=== PATIENT | female | born 1960 | race Caucasian/White ===

== ENCOUNTER 2017-01-14 05:38 | Inpatient (IN) | payer OTHER ==
[2017-01-14] MEDS ORDERED: IOPAMIDOL (ISOVUE-300) 100 ML BTL IV ONE (05:49)
[2017-01-14] MEDS ORDERED: ONDANSETRON 4 MG/2 ML VIAL ONE ×2 (06:10→09:30)
[2017-01-14] MEDS ORDERED: ONDANSETRON 4 MG/2 ML VIAL IVP ONE ×2 (06:15)
[2017-01-14] MEDS ORDERED: NS 1,000 ML IV ONE ×2 (06:15→07:27)
[2017-01-14 06:28] LABS: % IMMATURE GRANULYOCYTES 0.4 % (0.0-1.1); ABSOLUTE IMMATURE GRANULOCYTES 0.07 10^3/uL (0.00-0.10); ADD DIFF? NO; ADD MORPH? NO; ADD SCAN? NO; ATYPICAL LYMPHOCYTE FLAG 0 (0-99); FRAGMENT RBC FLAG 0 (0-99); HEMATOCRIT 49.3 % (38.0-47.0); HEMOGLOBIN 17.3 g/dL (12.6-16.3); LEFT SHIFT FLG 20 (0-99); LIPEMIA HEMOLYSIS FLAG 90 (0-99); MEAN CELL HEMOGLOBIN 30.8 pg (27.9-34.1); MEAN CELL HEMOGLOBIN CONCENTR. 35.1 g/dL (32.4-36.7); MEAN CELL VOLUME 87.9 fL (81.5-99.8); MEAN PLATELET VOLUME 10.1 fL (8.7-11.7); PLATELET CLUMPS FLAG 10 (0-99); PLATELET COUNT 351 10^3/uL (150-400); RED BLOOD CELL COUNT 5.61 10^6/uL (4.18-5.33); RED CELL DISTRIBUTION WIDTH 12.3 % (11.5-15.2)
[2017-01-14 06:40] LABS: ALANINE AMINOTRANSFERASE 35 IU/L (9-52); ALBUMIN 4.8 g/dL (3.5-5.0); ALKALINE PHOSPHATASE 54 IU/L (38-126); ANION GAP 14 mEq/L (8-16); ASPARTATE AMINOTRANSFERASE 33 IU/L (14-46); BILIRUBIN,TOTAL 1.2 mg/dL (0.1-1.4); BILIRUBIN-CONJUGATED 0.3 mg/dL (0.0-0.5); BILIRUBIN-UNCONJUGATED 0.9 mg/dL (0.0-1.1); CARBON DIOXIDE 26 mEq/l (22-31); CHLORIDE 98 mEq/L (97-110); CREATININE 0.9 mg/dL (0.6-1.0); GLOMERULAR FILTRATION RATE > 60; GLUCOSE 177 mg/dL (70-100); POTASSIUM 4.7 mEq/L (3.5-5.2); SODIUM 138 mEq/L (134-144)
--- NOTE | 2017-01-14 06:45 | EDPHY ---
H & P Stated Complaint: VOMIT X2 DAY,SEVERE AP AND RIGHT SHOULDER PAIN 2100,LEFT KNEE SURG 1 WK AGO Time Seen by Provider: 01/14/17 06:08 HPI/ROS: HPI The patient presents with right-sided abdominal pain which began at approximately 9:00 p.m. last night and is associated with vomiting. The patient describes the pain is sharp, it radiates throughout her abdomen, it is severe. It has been constant throughout the night and she has not slept well. She is having difficulty walking because of the pain. She has not had any fever. She had a knee operation about 1 week ago and only took pain pills for 1 day. She is not on any other new medications. She says she has been having small bowel movements. She denies any dysuria or hematuria.. REVIEW OF SYSTEMS Constitutional: No fever, no chills. Eyes: No discharge. ENT: No sore throat. Cardiovascular: No chest pain, no palpitations. Respiratory: No cough, no shortness of breath. Gastrointestinal: No abdominal pain, no vomiting. Genitourinary: No hematuria. Musculoskeletal: No back pain. Skin: No rashes. Neurological: No headache. 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, history of Soc Hx: Lives at home with her PHYSICAL General Appearance: Alert, uncomfortable appearing Eyes: Pupils equal and round no pallor or injection ENT, Mouth: Mucous membranes moist Respiratory: There are no retractions, lungs are clear to auscultation Cardiovascular: Regular rate and rhythm Gastrointestinal: Abdomen is soft with tenderness in the right lower quadrant and right upper quadrant with voluntary guarding Neurological: A&O, moves all extremities Skin: Warm and dry, no rashes Musculoskeletal: Neck is supple non tender Extremities: symmetrical, full range of motion Psychiatric: Patient is oriented X 3, there is no agitation Source: Patient Exam Limitations: No limitations - Personal History Current Tetanus/Diphtheria Vaccine: No - Medical/Surgical History Hx Asthma: No Hx Chronic Respiratory Disease: No Hx Diabetes: No Hx Cardiac Disease: No Hx Renal Disease: No Hx Cirrhosis: No Hx Alcoholism: No Hx HIV/AIDS: No Hx Splenectomy or Spleen Trauma: No Other PMH: THYROID, L AND R KNEE SURG, LEFT KIDNEY REMOVAL/DONATION, C-SECT, WISDOM TEETH - Social History Smoking Status: Never smoked Constitutional: Initial Vital Signs Temperature (C) 36.8 C 03/02/17 05:52 Heart Rate 115 H 01/14/17 05:52 Respiratory Rate 20 01/14/17 05:52 Blood Pressure 133/84 H 01/14/17 05:52 O2 Sat (%) 95 01/14/17 05:52 O2 Delivery Mode Room Air Allergies/Adverse Reactions: No Known Allergies Allergy (Unverified 01/14/17 05:52) Home Medications: Medication Instructions Recorded Hydrocodone/Acetaminophen [Patterson 1 - 2 tab PO Q6H PRN 01/14/17 5/325 (*)] Levothyroxine [Synthroid 100 mcg 100 mcg PO DAILY06 01/14/17 (*)] Liothyronine Sodium [Cytomel 25 25 mcg PO DAILY 01/14/17 mcg (*)] Medical Decision Making ED Course/Re-evaluation: 7:20 a.m.- I spoke with the radiologist who reviewed the patient's CT scan. She has a perforated bowel, likely coming from the anterior wall of her stomach with free air and fluid in her abdomen. I consulted with Dr. Spicer of General surgery who will come to the emergency room to see the patient. I have explained to the patient and her the diagnosis Differential Diagnosis: This is a 56-year-old female with past medical history of left kidney donation presents from home with severe right-sided abdominal pain associated with vomiting. She had a knee operation approximately 1 week ago. Differential diagnosis includes appendicitis, bowel obstruction, bowel perforation, cholecystitis, constipation, ureterolithiasis. - Data Points Laboratory Results: Laboratory Results 01/14/17 06:10 01/14/17 06:10 Medications Given: Discontinued Medications Hydromorphone HCl (Dilaudid) 1 mg IVP EDNOW ONE Stop: 01/14/17 07:30 Last Admin: 01/14/17 07:36 Dose: 1 mg Sodium Chloride (Ns) 1,000 mls @ 0 mls/hr IV ONCE ONE PRN Reason: Wide Open Stop: 01/14/17 06:16 Last Admin: 01/14/17 06:16 Dose: 1,000 mls Sodium Chloride (Ns) 1,000 mls @ 0 mls/hr IV ONCE ONE PRN Reason: Wide Open Stop: 01/14/17 07:28 Last Admin: 01/14/17 07:35 Dose: 1,000 mls Ertapenem 1 gm/ Sodium (Chloride) 100 mls @ 200 mls/hr IV EDNOW ONE PRN Reason: Protocol Stop: 01/14/17 08:02 Last Admin: 01/14/17 14:44 Dose: Not Given Pantoprazole Sodium 40 mg/ (Sodium Chloride) 100 mls @ 200 mls/hr IV EDNOW ONE Stop: 01/14/17 08:11 Last Admin: 01/14/17 07:58 Dose: 100 mls Morphine Sulfate (Morphine) 6 mg IVP EDNOW ONE Stop: 01/14/17 06:18 Last Admin: 01/14/17 06:35 Dose: 4 mg Morphine Sulfate (Morphine) 4 mg IVP EDNOW ONE Stop: 01/14/17 07:28 Last Admin: 01/14/17 07:35 Dose: Not Given Ondansetron HCl (Zofran) 4 mg IVP EDNOW ONE Stop: 01/14/17 06:16 Last Admin: 01/14/17 06:16 Dose: 4 mg Departure - Departure Disposition: [facility] Acute Clinical Impression: Perforated bowel Condition: Fair
[2017-01-14] MEDS ORDERED: HYDROmorphONE/DILAUDID 1 MG/ML SYR IVP ONE (07:29)
[2017-01-14] MEDS ORDERED: HYDROmorphONE/DILAUDID 1 MG/ML SYR ONE (07:29)
[2017-01-14] MEDS ORDERED: ERTAPENEM 1 GM in NS 100 ML IV ONE (07:33)
[2017-01-14] MEDS ORDERED: ACETAMINOPHEN 325 MG TAB PO PRN (07:36)
[2017-01-14] MEDS ORDERED: OXYCODONE/APAP 5/325 TAB PO PRN (07:36)
[2017-01-14] MEDS ORDERED: PANTOPRAZOLE SODIUM 40 MG in NS 100 ML IV ONE (07:42)
[2017-01-14] MEDS ORDERED: HEPARIN 1000 UNIT/1 ML MDV ONE (09:22)
[2017-01-14] MEDS ORDERED: BUPIVACAINE 0.5% 30 ML SDV ONE ×2 (09:22→11:11)
[2017-01-14] MEDS ORDERED: ceFAZolin 1 GM/5 ML SYR ONE (09:23)
[2017-01-14] MEDS ORDERED: PROPOFOL 200 MG/20 ML VIAL ONE (09:28)
[2017-01-14] MEDS ORDERED: fentaNYL 250 MCG/5 ML INJ ONE (09:28)
[2017-01-14] MEDS ORDERED: DEXAMETHASONE 4 MG/ML VIAL ONE ×2 (09:30→09:31)
[2017-01-14] MEDS ORDERED: LIDOCAINE 2% 5 ML SDV ONE (09:30)
[2017-01-14] MEDS ORDERED: ROCURONIUM 50 MG/5 ML VIAL ONE ×3 (09:30→10:49)
--- NOTE | 2017-01-14 09:45 | GHP ---
DATE OF ADMISSION: 01/14/2017 HISTORY OF PRESENT ILLNESS: The patient is a pleasant 56-year-old female who developed the acute on set of abdominal pain yesterday, associated with vomiting. The patient reports 9/10 pain over her e ntire abdomen, as well as right neck and right shoulder pain. She reports she has not felt well, as far as her abdomen since knee arthroscopically approximately 10 days ago. She does have a history of and laparoscopic nephrectomy of the left kidney. The patient is accompanied by her hus band in the Emergency Department. The patient denies taking any antiinflammatories recently, no history of H pylori. The patient has no history of ulcer disease. REVIEW OF SYSTEMS: She had a negative 10-point review of systems. PAST MEDICAL HISTORY: Hypothyroid. MEDICATIONS: Thyroid replacement. SOCIAL HISTORY: , nonsmoker, minimal alcohol use. ALLERGIES: No known drug allergies. PHYSICAL EXAM: GENERAL: The patient appears uncomfortable in the position, in obvious pain, accompanied by her . HEAD AND NECK: Normocephalic, atraumatic. CHEST: CTA bilaterally. H EART: Regular rhythm and rate. ABDOMEN: Mildly distended, very tender to palpation diffusely. EX TREMITIES: No lower extremity edema. Normal dorsalis pedis pulses to palpation. LABORATORY STUDIES: Elevated white blood cell count at 15, glucose 177. RADIOLOGY: CT of the abdomen demonstrates free air with site of perforation most likely gastric clara ology. IMPRESSION: A 56-year-old female with free intraabdominal air, possibly secondary to gastric ulcer. RECOMMENDATION: The patient was seen and examined by Dr. Spicer in the Emergency Department. The florencia rey has been consented for surgery, understanding that we will start laparoscopic, but there is a good chance of conversion to laparotomy, open procedure. Risks/benefits of surgery were discussed w ith the patient and her in detail. The patient will be admitted to the hospital. Expect a 3-5 day stay. /[id number]/MODL
--- NOTE | 2017-01-14 09:50 | SOAPPROG ---
SOAP Progress Note Assessment/Plan: Assessment: 56 FEMALE WITH FREE AIR AND PERITONITIS / RISKS AND OPTIONS FULLY DISCUSSED WITH NEED FOR URGENT SURGERY PHX CSECTION, DONOR NEPHRECTOMY, KNEE SCOPE ONE WEEK AGO MEDS 0 NKA ROS -CP SX, DIABETES, PUD, ASTHMA HEENT NONICTERIC CHEST CLEAR COR RR TACHYCARDIA ABD TENSE, TENDER, SILENT IMP: PERFED ULCER Plan: LAPAROSCOPY AND REPAIR/ POSSIBLE LAPAROTOMY/ AGAIN RISKS AND OPTIONS FULLY DISCUSSED 01/14/17 09:46 Objective: Vital Signs Temp Pulse Resp BP Pulse Ox 36.8 C 88 18 122/65 H 92 01/14/17 05:52 01/14/17 08:29 01/14/17 08:29 01/14/17 08:29 01/14/17 08:29 01/13/17 01/14/17 01/15/17 05:59 05:59 05:59 Intake Total 2100 Balance 2100 ICD10 Worksheet Patient Problems: Problems Problem Status Onset Perforated abdominal viscus Acute - ICD10 Problem Qualifiers (1) Perforated abdominal viscus
[2017-01-14] MEDS ORDERED: LIDOCAINE 2% JELLY 5 ML TUBE ONE (09:56)
--- NOTE | 2017-01-14 10:17 | POSTOPPROG ---
Post Op Note Date of Operation: 01/14/17 Surgeon: Ahsan Spicer Database Report Writer: Dr Flower Anesthesiologist: Dr Esparza Anesthesia: GET(General Endotracheal) Pre-op Diagnosis: free air Post-op Diagnosis: perforated pyloric ulcer Indication: free air/peritonitis Procedure: Lap nurys patch repair of ulcer Findings: ulcer perforated Inf/Abcess present in the surg proc area at time of surgery?: No Depth: Organ Space EBL: 50-100
[2017-01-14] MEDS ORDERED: SUGAMMADEX SODIUM 200 MG/2 ML VIAL IVP ONE ×2 (11:11→11:19)
[2017-01-14] MEDS: HYDROmorphONE/DILAUDID 1 MG/ML SYR IVP PRN ×6 (13:42→23:15)
[2017-01-14] MEDS: D5W 1/2 NS W/ 20 KCl/L 1,000 ML IV SCH ×2 (13:42→20:21)
--- NOTE | 2017-01-14 13:45 | GOP ---
DATE OF OPERATION: 01/14/2017 SURGEON: Ahsan Spicer MD DENTIST PRIVATE PRACTICE: Dr. Flower ANESTHESIOLOGIST: Dr. Esparza and Dr. Kyle PREOPERATIVE DIAGNOSIS: Perforated viscus. POSTOPERATIVE DIAGNOSIS: Perforated pyloric ulcer. PROCEDURE PERFORMED: Laparoscopy with peritoneal lavage and laparoscopic Jose closure of a perfor ated pyloric ulcer. FINDINGS: The patient was found to have a less than 1 cm ulcer perforated at the level of the pylor us. It was unclear if it was gastric or duodenal. There was widespread peritoneal contamination an d free fluid and in fact, there was very little omentum that was not inflamed and thickened to use f or a Jose patch closure. Since the patient had no previous gastric or peptic disease, and no defi nite etiology for her ulcer perforation, it was elected to do the Jose patch closure using the fal ciform ligament. DESCRIPTION OF PROCEDURE: The perforation site was freed up and cleared of fibrinous debris. The f alciform ligament was then mobilized with the Harmonic Scalpel, dividing the triangular ligament as well so that it would lay down on the duodenal surface adequately. Three separate 3-0 silk sutures were placed above, through, and below the ulcer bed, and they were then used to tie down over the fa lciform ligament patch and secured in place. The stomach was then distended with air and there was no evidence of any leakage. The abdomen was then copiously irrigated with over 6 L of fluid, washing out any purulent-looking ar eas and removing as much fibrinous debris as possible. Trocars were then removed under direct visio n. Trocar sites were closed with 0 Vicryl for the fascia and 4-0 Monocryl subcuticular stitch for t he skin. All layers were infiltrated with 0.5% Marcaine. She tolerated the procedure quite well. She was taken to the recovery room in satisfactory conditio n. Blood loss from the procedure was less than 10 cc. There were no complications. DENTIST PRIVATE PRACTICE: Dr. Giovanny Flower ANESTHESIOLOGIST: Dr. Kyle /[id number]/[facility]
[2017-01-14] MEDS: ONDANSETRON 4 MG/2 ML VIAL IVP PRN (18:53)
[2017-01-15] MEDS: HYDROmorphONE/DILAUDID 1 MG/ML SYR IVP PRN ×2 (02:52→09:39)
[2017-01-15] MEDS: D5W 1/2 NS W/ 20 KCl/L 1,000 ML IV SCH ×2 (02:52→23:06)
[2017-01-15 05:45] LABS: HEMATOCRIT 44.2 % (38.0-47.0); HEMOGLOBIN 15.3 g/dL (12.6-16.3)
[2017-01-15 06:02] LABS: ANION GAP 6 mEq/L (8-16); CALCIUM 8.4 mg/dL (8.5-10.4); CARBON DIOXIDE 22 mEq/l (22-31); CHLORIDE 104 mEq/L (97-110); CREATININE 0.8 mg/dL (0.6-1.0); GLOMERULAR FILTRATION RATE > 60; GLUCOSE 130 mg/dL (70-100); POTASSIUM 5.5 mEq/L (3.5-5.2); SODIUM 132 mEq/L (134-144)
--- NOTE | 2017-01-15 09:25 | SOAPPROG ---
SOAP Progress Note Assessment/Plan: Assessment: 56 yo female s/p laparoscopy for a perforated pyloric ulcer POD #1 Pain controlled. NPO diet. Plan: Lower IV dilaudid dosage to 0.1 mg per patient request. H. pylori IgG AB ordered. Stitches from prior left knee meniscotomy removed. Encouraged to exercise knee to prevent knee stiffness. Patient would like to decrease her pain meds. She had difficulty sleeping overnight and seems tired. Reports pain on RUQ but tolerating it well with ice packs over abdomen. Seemed in better mood during afternoon rounds with family visiting. PE: gen: alert, oriented, nad chest: CTA bilaterally cv: rrr abd: diffuse tenderness upon palpation; dressing CDI with no erythema; (-) BS NG tube right naris ~ 600 ml drainage 01/15/17 09:25 01/15/17 12:58 Objective: Vital Signs Temp Pulse Resp BP Pulse Ox 36.6 C 104 H 16 127/70 H 94 01/15/17 07:50 01/15/17 07:50 01/15/17 07:50 01/15/17 07:50 01/15/17 07:50 Laboratory Results 01/15/17 04:14 01/15/17 04:14 01/14/17 01/15/17 01/16/17 05:59 05:59 05:59 Intake Total 4425 Output Total 1150 Balance 3275 ICD10 Worksheet Patient Problems: Problems Problem Status Onset Perforated abdominal viscus Acute Perforated bowel Acute
[2017-01-15] MEDS: ERTAPENEM 1 GM in NS 100 ML IV SCH (09:40)
[2017-01-15] MEDS: PANTOPRAZOLE SODIUM 40 MG in NS 100 ML IV SCH (11:21)
[2017-01-15] MEDS ORDERED: BENZOCAINE UNIT DOSE SPRAY HURRICAINE MM PRN (14:03)
[2017-01-15] MEDS: HYDROmorphONE/DILAUDID 2 MG/ML INJ IVP PRN ×3 (14:18→22:00)
--- NOTE | 2017-01-15 17:07 | SOAPPROG ---
SOAP Progress Note Assessment/Plan: Assessment: 56 FEMALE WITH FREE AIR AND PERITONITIS / RISKS AND OPTIONS FULLY DISCUSSED WITH NEED FOR URGENT SURGERY PHX CSECTION, DONOR NEPHRECTOMY, KNEE SCOPE ONE WEEK AGO MEDS 0 NKA ROS -CP SX, DIABETES, PUD, ASTHMA HEENT NONICTERIC CHEST CLEAR COR RR TACHYCARDIA ABD TENSE, TENDER, SILENT IMP: PERFED ULCER Plan: LAPAROSCOPY AND REPAIR/ POSSIBLE LAPAROTOMY/ AGAIN RISKS AND OPTIONS FULLY DISCUSSED 01/14/17 09:46 01/15/17 17:05 MUCH IMPROVED POSTOP DAY 1. / SOME BOWEL SOUNDS AND QUESTIONABLE FLATUS / WOUND OKAY / AFEBRILE / HOPEFULLY DC NG AND START CLEAR LIQUIDS THIS WEEK IN Objective: Vital Signs Temp Pulse Resp BP Pulse Ox 36.6 C 112 H 16 121/73 H 93 01/15/17 16:00 01/15/17 16:00 01/15/17 16:00 01/15/17 16:00 01/15/17 16:00 Laboratory Results 01/15/17 04:14 01/15/17 04:14 01/14/17 01/15/17 01/16/17 05:59 05:59 05:59 Intake Total 4425 Output Total 1150 Balance 3275 ICD10 Worksheet Patient Problems: Problems Problem Status Onset Perforated abdominal viscus Acute Perforated bowel Acute - ICD10 Problem Qualifiers (1) Perforated abdominal viscus
[2017-01-15] MEDS: CEPACOL LOZENGE PO PRN ×3 (17:54→22:00)
[2017-01-16] MEDS: CEPACOL LOZENGE PO PRN ×4 (03:38→21:40)
[2017-01-16] MEDS: D5W 1/2 NS W/ 20 KCl/L 1,000 ML IV SCH ×3 (06:09→21:48)
[2017-01-16] MEDS: HYDROmorphONE/DILAUDID 2 MG/ML INJ IVP PRN ×3 (06:09→21:41)
[2017-01-16] MEDS: ERTAPENEM 1 GM in NS 100 ML IV SCH (08:55)
--- NOTE | 2017-01-16 09:03 | SOAPPROG ---
SOAP Progress Note Assessment/Plan: Assessment: postoperative day 2. Status post repair of perforated pyloric ulcer. She has new right upper extremity swelling. We will move the peripheral IV and get an ultrasound to rule out DVT. I have communicated this with the nurse as well as with Dr. Flower and Alanna she is H pylori positive. Since she is currently NPO we will treat this when she can take p.o. meds continue DVT prophylaxis continue medication for pain control S: NG tube is bothering her. no flatus yet objective lying in bed, at bedside NG with less than 200 cc output. lungs clear to auscultation bilaterally decreased at bases regular rate bowel sounds hypoactive. She is slightly distended. Dressings dry and intact Plan: 01/16/17 09:01 Objective: Vital Signs Temp Pulse Resp BP Pulse Ox 36.6 C 93 17 110/64 90 L 01/16/17 03:22 01/16/17 03:22 01/16/17 03:22 01/16/17 03:22 01/16/17 03:22 Laboratory Results 01/15/17 04:14 01/15/17 04:14 01/15/17 01/16/17 01/17/17 05:59 05:59 05:59 Intake Total 4425 Output Total 1150 600 Balance 3275 -600 ICD10 Worksheet Patient Problems: Problems Problem Status Onset Perforated abdominal viscus Acute Perforated bowel Acute
[2017-01-16] MEDS: PANTOPRAZOLE SODIUM 40 MG in NS 100 ML IV SCH (09:40)
[2017-01-16] MEDS: ENOXAPARIN 40 MG/0.4 ML SYR SC SCH (09:41)
[2017-01-16 10:17] LABS: COLOR YELLOW; LEUKOCYTE ESTERASE,URINE 2+ (NEGATIVE); NITRITE,URINE NEGATIVE (NEGATIVE)
[2017-01-16 10:24] LABS: BACTERIA TRACE /hpf (NONE SEEN); MUCUS 1+ /lpf (NONE-1+); WBC,URINE 25-50 /hpf (0-3)
[2017-01-17] MEDS: CEPACOL LOZENGE PO PRN ×5 (03:33→15:05)
[2017-01-17] MEDS: HYDROmorphONE/DILAUDID 2 MG/ML INJ IVP PRN ×5 (06:19→21:47)
[2017-01-17] MEDS: PANTOPRAZOLE SODIUM 40 MG in NS 100 ML IV SCH (09:42)
[2017-01-17] MEDS: ONDANSETRON 4 MG/2 ML VIAL IVP PRN (09:42)
[2017-01-17] MEDS: ENOXAPARIN 40 MG/0.4 ML SYR SC SCH (09:42)
[2017-01-17] MEDS: ERTAPENEM 1 GM in NS 100 ML IV SCH (10:55)
[2017-01-17] MEDS: D5W 1/2 NS W/ 20 KCl/L 1,000 ML IV SCH (11:59)
--- NOTE | 2017-01-17 13:34 | SOAPPROG ---
SOAP Progress Note Assessment/Plan: Assessment/Plan - 56yo s/p lap nurys patch perfd ulcer - NGT with minimal output, will clamp trial today - Abd soft, aTTP - Will start H pylori Tx today - OOBTC, ambulate. Otherwise doing well. Will need EGD c Bx when healthier 01/17/17 13:32 Subjective: Doing ok, pain appears well controlled. Objective: Vital Signs Temp Pulse Resp BP Pulse Ox 37.1 C 76 16 110/62 95 01/17/17 10:50 01/17/17 10:50 01/17/17 10:50 01/17/17 10:50 01/17/17 10:50 Laboratory Results 01/15/17 04:14 01/15/17 04:14 01/16/17 01/17/17 01/18/17 05:59 05:59 05:59 Intake Total 0 Output Total 600 50 Balance -600 -50 ICD10 Worksheet Patient Problems: Problems Problem Status Onset Perforated abdominal viscus Acute Perforated bowel Acute
[2017-01-17] MEDS: AMPICILLIN SODIUM 1 GM in NS 100 ML IV SCH (17:46)
[2017-01-18] MEDS: HYDROmorphONE/DILAUDID 2 MG/ML INJ IVP PRN ×5 (00:07→23:27)
[2017-01-18] MEDS: D5W 1/2 NS W/ 20 KCl/L 1,000 ML IV SCH (04:03)
[2017-01-18] MEDS: AMPICILLIN SODIUM 1 GM in NS 100 ML IV SCH ×5 (06:31→23:22)
[2017-01-18] MEDS: PANTOPRAZOLE SODIUM 40 MG in NS 100 ML IV SCH (08:45)
[2017-01-18] MEDS: ERTAPENEM 1 GM in NS 100 ML IV SCH (09:31)
--- NOTE | 2017-01-18 11:04 | SOAPPROG ---
SOAP Progress Note Assessment/Plan: Assessment: 56 yo female s/p laparoscopy for a perforated pyloric ulcer. H pylori positive, on IV treatment Pain controlled. On clear diet. Had normal BM this AM PE awake alert Chest CTA Abdomen nondistended, soft, incisions clean and dry Plan continue clears, will need change to oral ABX for H. pylori Objective: Vital Signs Temp Pulse Resp BP Pulse Ox 36.8 C 80 20 104/60 89 L 01/18/17 07:19 01/18/17 07:19 01/18/17 07:19 01/18/17 07:19 01/18/17 07:19 Microbiology 01/16/17 10:21 Urine Culture - Final Urine,Clean Catch Laboratory Results 01/15/17 04:14 01/15/17 04:14 01/17/17 01/18/17 01/19/17 05:59 05:59 05:59 Intake Total 0 1634 Output Total 50 Balance -50 1634 ICD10 Worksheet Patient Problems: Problems Problem Status Onset Perforated abdominal viscus Acute Perforated bowel Acute
[2017-01-18] MEDS: ENOXAPARIN 40 MG/0.4 ML SYR SC SCH (12:15)
[2017-01-19] MEDS: AMPICILLIN SODIUM 1 GM in NS 100 ML IV SCH ×2 (05:33→11:30)
[2017-01-19] MEDS: HYDROmorphONE/DILAUDID 2 MG/ML INJ IVP PRN (08:14)
[2017-01-19] MEDS: PANTOPRAZOLE SODIUM 40 MG in NS 100 ML IV SCH (08:14)
[2017-01-19] MEDS: ENOXAPARIN 40 MG/0.4 ML SYR SC SCH (08:14)
[2017-01-19] MEDS: ERTAPENEM 1 GM in NS 100 ML IV SCH (08:14)
--- NOTE | 2017-01-19 10:33 | SOAPPROG ---
SOAP Progress Note Assessment/Plan: Assessment: 56 F s/p lap for perforated pyloric ulcer POD #5, Day #2/5 of IV abx for H. pylori. Plan: Advance to light diet. Will need to change to oral abx for H. pylori. 01/19/17 10:31 Subjective: Feeling slightly nauseated. Pain controlled. Would like to start eating solid foods. Had a bowel movement this AM. Objective: Vital Signs Temp Pulse Resp BP Pulse Ox 36.4 C 81 18 115/68 91 L 01/19/17 07:59 01/19/17 07:59 01/19/17 07:59 01/19/17 07:59 01/19/17 07:59 Microbiology 01/16/17 10:21 Urine Culture - Final Urine,Clean Catch Laboratory Results 01/15/17 04:14 01/15/17 04:14 01/18/17 01/19/17 01/20/17 05:59 05:59 05:59 Intake Total 1634 1301 Balance 1634 1301 GEN: awake, alert, nad CHEST: CTA bilaterally COR: RRR ABD: soft, slightly tender upon palpation, incisions CDI ICD10 Worksheet Patient Problems: Problems Problem Status Onset Perforated abdominal viscus Acute Perforated bowel Acute
[2017-01-19 17:36] VITALS: RESP 16
[2017-01-19] MEDS: LOPERAMIDE HCL 2 MG CAP PO PRN (18:14)
[2017-01-19] MEDS: HYDROCODONE/APAP 5/325 TAB PO PRN (21:24)
[2017-01-19] MEDS: metroNIDAZOLE 500 MG TAB PO SCH (21:24)
[2017-01-20] MEDS: metroNIDAZOLE 500 MG TAB PO SCH (05:28)
[2017-01-20] MEDS: HYDROCODONE/APAP 5/325 TAB PO PRN (08:32)
[2017-01-20] MEDS: PANTOPRAZOLE SODIUM 40 MG in NS 100 ML IV SCH (08:33)
[2017-01-20 08:35] VITALS: BP 104/60; PULSE 76; TEMP 98.5; O2SAT 95
[2017-01-20] MEDS: ENOXAPARIN 40 MG/0.4 ML SYR SC SCH (08:35)
[2017-01-20] MEDS: ERTAPENEM 1 GM in NS 100 ML IV SCH (09:17)
--- NOTE | 2017-01-20 10:33 | SOAPPROG ---
SOAP Progress Note Assessment/Plan: Assessment: 56 F s/p lap for perforated pyloric ulcer POD #6, Day #3/5 of IV abx for H. pylori. D/c to home today. Rx: protonix, amoxicillin, flagyl, norco. f/u next week. S: eating, tolerating PO meds, +BM O: alert, nad mmm, ncat chest clear rrr abd softly bloated, +BS, inc cdi 01/20/17 10:32 Objective: Vital Signs Temp Pulse Resp BP Pulse Ox 36.9 C 76 16 104/60 95 01/20/17 08:00 01/20/17 08:00 01/20/17 08:00 01/20/17 08:00 01/20/17 08:00 Laboratory Results 01/15/17 04:14 01/15/17 04:14 01/19/17 01/20/17 01/21/17 05:59 05:59 05:59 Intake Total 1301 400 Balance 1301 400 ICD10 Worksheet Patient Problems: Problems Problem Status Onset Perforated abdominal viscus Acute Perforated bowel Acute
[2017-01-20] MEDS: LOPERAMIDE HCL 2 MG CAP PO PRN (10:36)
== END 2017-01-20 10:46 | disposition home or self-care (01) | DRG 327 ==
LOC: F3E 13:19
PROVIDERS: ADMIT Surgery; ATTEND Surgery
DX: K25.5 Chronic or unspecified gastric ulcer with perforation (principal); I82.611 Acute embolism and thrombosis of superficial veins of right upper extremity; E03.9 Hypothyroidism, unspecified; Z90.5 Acquired absence of kidney
CPT/HCPCS: 96374; J0290; J1100; J1170; J1335; J1650; J2405; J2704; J3010; Q9967

== ENCOUNTER 2017-01-29 10:33 | Inpatient (IN) | payer OTHER ==
[2017-01-29] MEDS ORDERED: IOPAMIDOL (ISOVUE-300) 100 ML BTL IV ONE (12:14)
[2017-01-29] MEDS ORDERED: ONDANSETRON 4 MG/2 ML VIAL IVP PRN (14:17)
[2017-01-29] MEDS ORDERED: HYDROCODONE/APAP 5/325 TAB PO PRN (14:17)
[2017-01-29] MEDS ORDERED: fentaNYL 100 MCG/2 ML INJ ONE ×2 (15:11→16:21)
[2017-01-29] MEDS ORDERED: MIDAZOLAM 2 MG/2 ML VIAL ONE (15:12)
[2017-01-29 15:18] LABS: % IMMATURE GRANULYOCYTES 0.4 % (0.0-1.1); ABSOLUTE IMMATURE GRANULOCYTES 0.04 10^3/uL (0.00-0.10); ADD DIFF? NO; ADD MORPH? NO; ADD SCAN? NO; ATYPICAL LYMPHOCYTE FLAG 30 (0-99); FRAGMENT RBC FLAG 0 (0-99); HEMATOCRIT 33.5 % (38.0-47.0); HEMOGLOBIN 11.3 g/dL (12.6-16.3); LEFT SHIFT FLG 0 (0-99); LIPEMIA HEMOLYSIS FLAG 80 (0-99); MEAN CELL HEMOGLOBIN 30.9 pg (27.9-34.1); MEAN CELL HEMOGLOBIN CONCENTR. 33.7 g/dL (32.4-36.7); MEAN CELL VOLUME 91.5 fL (81.5-99.8); PLATELET CLUMPS FLAG 20 (0-99); PLATELET COUNT 611 10^3/uL (150-400); RED BLOOD CELL COUNT 3.66 10^6/uL (4.18-5.33); RED CELL DISTRIBUTION WIDTH 14.3 % (11.5-15.2)
[2017-01-29] MEDS: ERTAPENEM 1 GM in NS 100 ML IV SCH (15:31)
[2017-01-29 15:35] LABS: APTT 28.5 SEC (23.0-38.0); INR 1.18 (0.83-1.16)
[2017-01-29 15:38] LABS: ALANINE AMINOTRANSFERASE 39 IU/L (9-52); ALBUMIN 3.2 g/dL (3.5-5.0); ALKALINE PHOSPHATASE 80 IU/L (38-126); ANION GAP 12 mEq/L (8-16); ASPARTATE AMINOTRANSFERASE 32 IU/L (14-46); BILIRUBIN,TOTAL 0.5 mg/dL (0.1-1.4); CALCIUM 8.9 mg/dL (8.5-10.4); CARBON DIOXIDE 24 mEq/l (22-31); CHLORIDE 103 mEq/L (97-110); CREATININE 0.6 mg/dL (0.6-1.0); GLOMERULAR FILTRATION RATE > 60; GLUCOSE 89 mg/dL (70-100); POTASSIUM 4.2 mEq/L (3.5-5.2); SODIUM 139 mEq/L (134-144); TOTAL PROTEIN 6.4 g/dL (6.3-8.2)
[2017-01-29] MEDS ORDERED: HYDROmorphONE/DILAUDID 1 MG/ML SYR IVP PRN (15:38)
[2017-01-29] MEDS ORDERED: OXYCODONE/APAP 5/325 TAB PO PRN (15:39)
[2017-01-29] MEDS ORDERED: HYDROmorphONE/DILAUDID 2 MG/ML INJ ONE (16:48)
--- NOTE | 2017-01-29 18:43 | POSTOPPROG ---
Post Op Note Date of Operation: 01/29/17 Surgeon: Ahsan Hobson Monitoring Manager: Michel Dias Anesthesia: Other (Specify) Pre-op Diagnosis: Subcapsular hepatic fluid collection Post-op Diagnosis: same Indication: Post-up repair of gastric perforation Procedure: CT guided drainage of subcapsular fluid collection Findings: 90 ml thin serous minimally cloudy fluid Inf/Abcess present in the surg proc area at time of surgery?: Yes Depth: Organ Space EBL: Minimal Complications: 0 Drains: Other (12 F pigtail drain in perihepatic fluid) Specimen(s): 20 ml sent to lab for microbiology (aerobic, anaerobic, fungal).
[2017-01-29] MEDS: D5W 1/2 NS 1,000 ML IV SCH (18:44)
[2017-01-29] MEDS ORDERED: NALOXONE HCL 0.4 MG/ML INJ IVP PRN (19:28)
[2017-01-29] MEDS: HYDROmorphONE/DILAUDID 6 MG/30 ML PCA IV PRN (20:01)
--- NOTE | 2017-01-29 20:28 | GHP ---
[f rep st] HISTORY AND PHYSICAL DATE OF ADMISSION: 01/29/2017 CHIEF COMPLAINT: Right upper quadrant pain. HISTORY OF PRESENT ILLNESS: This is an otherwise healthy 56-year-old female, well known to the surg ical service from her previous admission earlier this month. Briefly, she presented to the Emergenc y Department on the morning of the complaining of severe abdominal pain. She had imaging at jones t time which showed a fair amount of free air within her belly, with likely hole in her gastric antr um. She was taken to the operating room for laparoscopic exploration, where a perforation was indee d identified. She underwent washout and Jose patch. Subsequently, admitted to the surgical servi where she was found to be H. pylori positive. She was subsequently treated for the above, had e remainder of an uneventful hospital course, and was subsequently discharged home uneventfully on . She was subsequently seen in the clinic yesterday, on the , complaining of right upper quadrant pain. Labs were done at that point in time, which did show leukocytosis to 11,000, but dar rything else is fairly unremarkable. CT scan was scheduled for today. She subsequently underwent a CT scan, which identified a fairly large subcapsular collection in her liver. Given the large china ection and her pain, she was subsequently admitted to the surgical service. [facility] was successfully placed into it. On my evaluation of the patient, she i s having some pain. The remainder of her abdomen remains soft, and nondistended, and nontender. Sh e is not nauseated, not vomiting, afebrile. Her main complaint at this point in time is the persist ent right upper quadrant pain. PAST MEDICAL HISTORY: Hypothyroidism. PAST SURGICAL HISTORY: Exploratory laparoscopy for Jose patch with abdominal washout for perforat ed gastric ulcer. She also has history of being H pylori positive. SOCIAL HISTORY: Social alcohol. . Nonsmoker. ALLERGIES: None. REVIEW OF SYSTEMS: A full 10-point review was performed and unless explicitly stated above, is othe rwise negative. CURRENT MEDICATIONS: Reviewed in the medical chart and [employer]. PHYSICAL EXAM: VITAL SIGNS: Temperature 37.2, blood pressure 120/60, heart rate 72, and she is 99% on 2 L. GENERAL: She is alert and oriented, in no acute distress. CV: She has a regular rate an d rhythm without any murmurs. LUNGS: Clear to auscultation bilaterally. ABDOMEN: Soft, nondisten ded, nontender. She has a percutaneous drain in the right upper quadrant draining clear straw color ed fluid. EXTREMITIES: Warm and well perfused. LABORATORY DATA: Leukocytosis to 10,000, with a left shift. Coags unremarkable with an INR of 1.1. Chemistries unremarkable. CT scan reviewed, which shows a large 12 x 15 subcapsular liver fluid c ollection. ASSESSMENT AND PLAN: A 56-year-old female, status post perforated gastric ulcer, now returns with l arge subcapsular liver fluid collection. Unclear etiology at this point in time. We will send the fluid for studies, as well as Gram stain and culture. In the meantime, we have empirically started broad-spectrum antibiotics in the event that this is infected, although it clearly does not appear t o be at this point. IV fluids. It is okay if she eats. We will continue to do studies. Likely th is will resolve without any further intervention. She understands that if it worsens or if she has worsening pain, she may need operative intervention. /[id number]/MODL
[2017-01-30] MEDS: LEVOTHYROXINE 100 MCG TAB PO SCH (05:40)
[2017-01-30] MEDS: LIOTHYRONINE SODIUM 25 MCG TAB PO SCH (05:40)
[2017-01-30] MEDS: ERTAPENEM 1 GM in NS 100 ML IV SCH (09:57)
[2017-01-30] MEDS: PANTOPRAZOLE SODIUM 40 MG TAB PO SCH (09:58)
[2017-01-30] MEDS: D5W 1/2 NS 1,000 ML IV SCH ×2 (11:14→21:03)
[2017-01-30 14:55] LABS: BILIRUBIN,TOTAL 0.9 mg/dL (0.1-1.4)
[2017-01-30] MEDS ORDERED: IOPAMIDOL (ISOVUE 370) 100 ML BTL IV ONE (17:18)
[2017-01-30] MEDS ORDERED: HEPARIN 10,000 UNIT/10 ML MDV IVP PRN (19:14)
[2017-01-30] MEDS ORDERED: HEPARIN 10,000 UNIT/10 ML MDV IVP ONE (19:14)
[2017-01-30 19:56] LABS: % IMMATURE GRANULYOCYTES 0.2 % (0.0-1.1); ABSOLUTE IMMATURE GRANULOCYTES 0.02 10^3/uL (0.00-0.10); ADD DIFF? NO; ADD MORPH? NO; ADD SCAN? NO; ATYPICAL LYMPHOCYTE FLAG 10 (0-99); FRAGMENT RBC FLAG 0 (0-99); HEMATOCRIT 34.2 % (38.0-47.0); HEMOGLOBIN 11.4 g/dL (12.6-16.3); LEFT SHIFT FLG 0 (0-99); LIPEMIA HEMOLYSIS FLAG 80 (0-99); MEAN CELL HEMOGLOBIN 30.8 pg (27.9-34.1); MEAN CELL HEMOGLOBIN CONCENTR. 33.3 g/dL (32.4-36.7); MEAN CELL VOLUME 92.4 fL (81.5-99.8); MEAN PLATELET VOLUME 9.2 fL (8.7-11.7); PLATELET CLUMPS FLAG 0 (0-99); PLATELET COUNT 481 10^3/uL (150-400); RED CELL DISTRIBUTION WIDTH 14.1 % (11.5-15.2)
[2017-01-30 20:10] LABS: INR 1.19 (0.83-1.16); PROTIME(PATIENT) 15.1 SEC (12.0-15.0)
[2017-01-30 20:11] LABS: APTT 28.9 SEC (23.0-38.0)
[2017-01-30] MEDS: HEPARIN/DEXTROSE 500 ML IV SCH (21:00)
[2017-01-30] MEDS: HYDROmorphONE/DILAUDID 6 MG/30 ML PCA IV PRN (21:29)
--- NOTE | 2017-01-30 23:02 | SOAPPROG ---
SOAP Progress Note Assessment/Plan: Assessment: HD # 2 for RUQ pain Drain of subcapsular fluid collection. Negative for bile leak. Will monitor drain output This afternoon her sats dropped and she was more short of breath. CTA with PE. Started heparin drip. Discussed with Alanna, her and her daughter Will advance diet in am S: Fullness in RUQ is improved O: Sitting in bed, O2 in place Lungs decreased right base. No obvious increased work of breathing Regular rate Drain with thin clear yellow fluid Abdomen soft Plan: 01/30/17 22:58 Objective: Vital Signs Temp Pulse Resp BP Pulse Ox 37.2 C 89 17 105/64 93 01/30/17 21:58 01/30/17 21:58 01/30/17 21:58 01/30/17 21:58 01/30/17 21:58 Microbiology 01/29/17 17:30 Gram Stain - Final Liver - Aspirate Laboratory Results 01/30/17 19:45 01/29/17 15:10 01/29/17 01/30/17 01/31/17 05:59 05:59 05:59 Intake Total 1621 1999 Output Total 950 15 Balance 671 1985 PT 15.1 SEC (12.0-15.0) H 01/30/17 19:45 INR 1.19 (0.83-1.16) H 01/30/17 19:45 ICD10 Worksheet Patient Problems: Problems Problem Status Onset Perforated abdominal viscus Acute Perforated bowel Acute
[2017-01-31] MEDS: LEVOTHYROXINE 100 MCG TAB PO SCH (06:11)
[2017-01-31] MEDS: LIOTHYRONINE SODIUM 25 MCG TAB PO SCH (06:14)
[2017-01-31 07:34] LABS: BILIRUBIN,TOTAL 0.9 mg/dL (0.1-1.4)
--- NOTE | 2017-01-31 09:23 | SOAPPROG ---
SOAP Progress Note Assessment/Plan: Assessment: HD # 3 for RUQ pain (original admission for perf ulcer, h pylori positive, treated) Drain of subcapsular fluid collection. Negative for bile leak. Will monitor drain output Pulmonary embolism. Right calf tenderness. Will scan bilateral lower extremities. Heparin drip. Started Warfarin. Discussed case with Dr. Reddy and I appreciate her seeing Alanna Regular diet S: Feels better this am. Easier breathing. O: Sitting in bed, O2 in place Lungs decreased right base. No obvious increased work of breathing Regular rate Drain with thin clear yellow fluid Abdomen soft. Incisions cdi Plan: 01/30/17 22:58 01/31/17 09:21 Objective: Vital Signs Temp Pulse Resp BP Pulse Ox 36.4 C 78 18 116/69 93 01/31/17 08:16 01/31/17 08:16 01/31/17 08:16 01/31/17 08:16 01/31/17 08:16 Microbiology 01/29/17 17:30 Gram Stain - Final Liver - Aspirate Laboratory Results 01/30/17 19:45 01/29/17 15:10 01/30/17 01/31/17 02/01/17 05:59 05:59 05:59 Intake Total 1621 3004.5 Output Total 950 35 Balance 671 2969.5 PT 15.1 SEC (12.0-15.0) H 01/30/17 19:45 INR 1.19 (0.83-1.16) H 01/30/17 19:45 ICD10 Worksheet Patient Problems: Problems Problem Status Onset Perforated abdominal viscus Acute Perforated bowel Acute
[2017-01-31] MEDS: ERTAPENEM 1 GM in NS 100 ML IV SCH (09:34)
[2017-01-31] MEDS: PANTOPRAZOLE SODIUM 40 MG TAB PO SCH (09:34)
[2017-01-31] MEDS: OXYCODONE/APAP 5/325 TAB PO PRN ×3 (11:12→20:09)
--- NOTE | 2017-01-31 16:02 | GCON ---
CONSULTATION HEMATOLOGY CONSULTATION DATE OF CONSULTATION: 01/31/2017 REFERRING PHYSICIAN: Donna Wells MD REASON FOR CONSULTATION: Pulmonary embolus. HISTORY OF PRESENT ILLNESS: The patient is a previously health 56-year-old woman who had a perforated gastric ulcer 2 weeks ago, requiring laparoscopy and Jose patch closure. She was discharged home 01/20/2017. She presented on with right upper quadrant pain. CT 01/29/2017 demonstrated a large, multiloculated gas and fluid-filled right subdiaphragmatic/perihepatic fluid collection, and moderate to large right and small left pleural effusions. She was admitted and had a drain placed by Interventional Radiology. Thus far, the fluid Gram stain demonstrated no PMNs, no organisms. Culture to date is negative. Yesterday afternoon, she was more dyspneic, and was requiring more oxygen with ambulation. CT angiogram was performed, demonstrating moderate volume right upper lobe and left upper lobe pulmonary emboli. Heparin was started. Prior to her presentation with the perforated ulcer earlier this month, the patient felt well and in good health. She did have an arthroscopic left knee surgery 1 week before her abdominal surgery. She noted no left lower extremity pain or swelling. She has noticed right calf tightness over the last few days. PAST MEDICAL HISTORY: 1. Perforated pyloric ulcer as above. 2. Hypothyroidism. PAST SURGICAL HISTORY: 1. 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 2. Laparoscopy and Jose patch for perforated pyloric ulcer 01/14/2017. 3. Left arthroscopic knee surgery 12/2016. 4. Right arthroscopic knee surgery 5-6 years ago. 5. with her first child. OB-PM HEAD COOK HISTORY: G3, P3. Normal uncomplicated pregnancies and deliveries. Remote OCP use. LMP 12/2015. Menarche age 8. No HRT. HEALTHCARE MAINTENANCE: She reports she has not had a mammogram for sometime. Most recent in [place] is 09/18/2013. She had a screening colonoscopy about 6- 1/2 years ago and reports recommendation for a repeat in 10 years. Her primary care physician is Dr. Robyn Nava. PRIOR OUTPATIENT MEDICATIONS: Levothyroxine. CURRENT MEDICATIONS: Reviewed. She is on ertapenem and IV heparin. ALLERGIES: No known drug allergies. SOCIAL HISTORY: She is to [place]. 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 They live in [place]. She is a nonsmoker. Occasional alcohol use. FAMILY HISTORY: No family history of thromboembolic events. She has 4 brothers. One has idiopathic kidney disease, and she served as kidney donor for him. Her maternal grandmother had colon cancer at about 50. No other family history of malignancy. She has 2 daughters, 27 and 23, and a son, age 28. REVIEW OF SYSTEMS: CONSTITUTIONAL: No fevers or chills. She is fatigued. Prior to her perforated ulcer, weight had been stable. HEENT: No vision changes. CARDIOVASCULAR: She has no exertional chest pain, palpitations, PND. No prior edema. RESPIRATORY: Dyspnea on exertion. She has right lower chest /right upper quadrant pain. GI: Prior to her recent hospitalizations, she reports a normal appetite, no bowel changes, no melena, bright red blood per rectum. No diarrhea or constipation. GENITOURINARY: LMP 12/2015. No spotting. No hematuria. MUSCULOSKELETAL: No back pain or other bony complaints. HEMATOLOGIC: No bruising or bleeding. LYMPHATIC: No lymphadenopathy. NEUROLOGIC: No headache, numbness, focal weakness, confusion. PHYSICAL EXAMINATION: VITAL SIGNS: Blood pressure 95-116/64-71. Heart rate in the 80s, respirations 16-20, 95% on 4 L. Afebrile. GENERAL: Pleasant woman who appears fatigued, but in no acute distress. A&O. HEENT: No scleral icterus. NECK: Supple. LYMPH: No supraclavicular or axillary adenopathy. BREASTS: No dominant masses, overlying skin changes, nipple abnormalities. CARDIOVASCULAR: Regular rate and rhythm. No pitting edema. LUNGS: Reduced breath sounds in the bases, right greater than left. ABDOMEN: VON drain, right upper quadrant. Soft. Normal bowel sounds. NEUROLOGIC: Grossly nonfocal. SKIN: No rashes, ecchymoses, petechiae. LABORATORY DATA: Yesterday, WBC 9.3, hemoglobin 11.4, platelets 481,000. Normal hemoglobin earlier this month. On 01/14/2017, normal LFTs. On 2016, creatinine 0.6. Anti Xa level therapeutic this morning, 0.59. RADIOLOGIC STUDIES: Per HPI. CT abdomen and pelvis 01/29/2017 demonstrated normal pancreas and hypertrophic right kidney. No adnexal masses. IMPRESSION: 1. Pulmonary emboli in the postoperative setting. 2. Right perihepatic postoperative fluid collection. 3. Moderate right pleural effusion, small left pleural effusion. 4. Family history of colon cancer (maternal grandmother age 50). I reviewed with the patient and her the variety of causes of thromboembolic events (postoperative setting, hereditary and acquired causes, malignancy, etc.). She has had 2 surgeries in the last few weeks (left arthroscopic knee surgery, abdominal surgery). She has no family history of thromboembolic events and no symptoms or clinical findings to suggest underlying malignancy. I think this is a provoked venous thromboembolism in the postoperative setting. We discussed anticoagulation, initially with heparin. When the surgical service feels comfortable with Lovenox, she can change to that and then bridge to Coumadin (or NOAC). She should have at least 7 days of heparin/low molecular weight heparin prior to discontinuation when her INR is therapeutic. We discussed a likely 6-month course of anticoagulation. She will have bilateral lower extremity Dopplers to serve as a baseline. She does not have evidence of a perihepatic abscess. I suspect the larger right pleural effusion is, in part, sympathetic from the subdiaphragmatic process as well as related to pulmonary emboli. Fluid could be tapped for symptomatic benefit. Complicated effusion or empyema is unlikely, given the lack of evidence thus far for subdiaphragmatic abscess, but final cultures will need to be followed. I recommend she bring her healthcare maintenance up to date with screening mammogram, and she should be having screening colonoscopy every 5 years in light of her family history. /[id number]/MODL MTDD
[2017-01-31] MEDS: WARFARIN SODIUM 5 MG TAB PO SCH (16:44)
[2017-01-31] MEDS: HEPARIN/DEXTROSE 500 ML IV SCH (18:22)
[2017-02-01] MEDS: OXYCODONE/APAP 5/325 TAB PO PRN ×4 (00:10→12:54)
[2017-02-01] MEDS: LIOTHYRONINE SODIUM 25 MCG TAB PO SCH (05:20)
[2017-02-01] MEDS: LEVOTHYROXINE 100 MCG TAB PO SCH (05:20)
[2017-02-01 06:19] LABS: INR 1.13 (0.83-1.16); PROTIME(PATIENT) 14.4 SEC (12.0-15.0)
[2017-02-01] MEDS: ERTAPENEM 1 GM in NS 100 ML IV SCH (08:30)
[2017-02-01] MEDS: PANTOPRAZOLE SODIUM 40 MG TAB PO SCH (08:31)
--- NOTE | 2017-02-01 10:00 | SOAPPROG ---
SOAP Progress Note Assessment/Plan: Assessment/plan: 56 Y F admitted c RUQ pain, found to have RLE DVT, B R>L PE's. Prior admission for perforated ulcer with surgical repair, h pylori+, treated. Also, recent L arthroscopic knee surgery. Subcapsular fluid collection. S/p IR drainage. Drain nonbilious, cultures NGTD. On invanz. Pleural effusion on CT. Probably reactive. Some SOB, elements of PE and possibly the effusion. Will get CXR to reassess. May benefit from thoracentesis. PE, DVT. Appreciate hematology input. Warfarin started. Heparin gtt. Will d/w re: switch to therapeutic lovenox. Seen and examined with Dr. Flower. Dispo: pending. S: Only complaint is some RUQ soreness--improved, but not resolved. O: Sitting up in bed. nad, alert. Lungs decreased right base. No obvious increased work of breathing Regular rate Drain with thin clear yellow fluid Abdomen soft. Incisions cdi 02/01/17 10:00 Objective: Vital Signs Temp Pulse Resp BP Pulse Ox 36.4 C 70 18 93/53 L 98 02/01/17 08:09 02/01/17 08:09 02/01/17 08:09 02/01/17 08:09 02/01/17 08:09 Microbiology 01/29/17 17:30 Gram Stain - Final Liver - Aspirate Laboratory Results 02/01/17 05:30 01/29/17 15:10 01/31/17 02/01/17 02/02/17 05:59 05:59 05:59 Intake Total 3004.5 1945 Output Total 35 330 Balance 2969.5 1615 PT 14.4 SEC (12.0-15.0) 02/01/17 05:30 INR 1.13 (0.83-1.16) 02/01/17 05:30 ICD10 Worksheet Patient Problems: Problems Problem Status Onset Perforated abdominal viscus Acute Perforated bowel Acute
--- NOTE | 2017-02-01 12:36 | SOAPPROG ---
[place] Progress Note Assessment/Plan: Assessment: 1) Pulmonary embolism (provoked) 2) S/P surgery for pyloric ulcer with intraabdominal fluid collection Plan: Continues on heparin. Warfarin started. INR not yet therapeutic. D/C heparin once INR > 2. If not yet therapeutic at time of d/c, then "bridging " Lovenox could be used. Warfarin can be managed by patient's PCP at discharge. Dr. Reddy can manage if PCP favors hematology to manage warfarin. Management of abdominal fluid collection per surgery. Patient's questions answered. 02/01/17 12:31 Subjective: Feels better. Denies chest pain or dyspnea. Objective: Vital Signs Temp Pulse Resp BP Pulse Ox 36.4 C 70 18 93/53 L 98 02/01/17 08:09 02/01/17 08:09 02/01/17 08:09 02/01/17 08:09 02/01/17 08:09 Microbiology 01/29/17 17:30 Gram Stain - Final Liver - Aspirate Laboratory Results 02/01/17 05:30 01/29/17 15:10 01/31/17 02/01/17 02/02/17 05:59 05:59 05:59 Intake Total 3004.5 1945 Output Total 35 330 Balance 2969.5 1615 PT 14.4 SEC (12.0-15.0) 02/01/17 05:30 INR 1.13 (0.83-1.16) 02/01/17 05:30 - Time Spent With Patient Time Spent With Patient: 20 minutes Physical Exam - Physical Exam General Appearance: alert, no apparent distress Respiratory: lungs clear Cardiac/Chest: regular rate, rhythm Neuro/Psych: alert, normal mood/affect ICD10 Worksheet Patient Problems: Problems Problem Status Onset Perforated abdominal viscus Acute Perforated bowel Acute
[2017-02-01] MEDS: HEPARIN/DEXTROSE 500 ML IV SCH (16:27)
[2017-02-01] MEDS: WARFARIN SODIUM 5 MG TAB PO SCH (16:31)
[2017-02-01] MEDS: CYCLOBENZAPRINE 10 MG TAB PO SCH ×2 (16:31→21:25)
[2017-02-01] MEDS: oxyCODONE IR 5 MG TAB PO PRN (18:31)
[2017-02-02] MEDS: oxyCODONE IR 5 MG TAB PO PRN (01:23)
[2017-02-02] MEDS: LIOTHYRONINE SODIUM 25 MCG TAB PO SCH (04:53)
[2017-02-02] MEDS: LEVOTHYROXINE 100 MCG TAB PO SCH (04:53)
[2017-02-02 05:34] LABS: INR 1.17 (0.83-1.16); PROTIME(PATIENT) 14.9 SEC (12.0-15.0)
[2017-02-02 05:36] LABS: APTT 78.5 SEC (23.0-38.0)
[2017-02-02] MEDS ORDERED: LORazepam 2 MG/ML INJ IVP ONE (08:55)
[2017-02-02] MEDS ORDERED: LIDOCAINE 1% 30 ML SDV ONE (09:39)
[2017-02-02] MEDS ORDERED: NA BICARBONATE 50 MEQ/50 ML VIAL ONE (09:40)
[2017-02-02] MEDS: CYCLOBENZAPRINE 10 MG TAB PO SCH ×3 (10:03→20:36)
[2017-02-02] MEDS: PANTOPRAZOLE SODIUM 40 MG TAB PO SCH (10:03)
--- NOTE | 2017-02-02 11:20 | SOAPPROG ---
SOAP Progress Note Assessment/Plan: Assessment/plan: 56 Y F admitted c RUQ pain, found to have RLE DVT, B R>L PE's. Prior admission for perforated ulcer with surgical repair, h pylori+, treated. Also, recent L arthroscopic knee surgery. Subcapsular fluid collection. S/p IR drainage. Drain nonbilious, cultures NGTD p 72 hrs. Invanz discontinued. Hope to remove drain before d/c. Pleural effusion on CT and CXR . Probably reactive. Therapeutic thoracentesis today. Ok to hold heparin gtt beforehand. PE, DVT. Appreciate hematology input. Warfarin started, INR 1.18. Heparin gtt today and then start therapeutic bid lovenox this evening. Dispo: Likely home tomorrow with lovenox and coumadin. S: SOB unchanged. R calf only hurts when walking. O: Sitting up in bed. nad, alert. Lungs decreased right base. No obvious increased work of breathing Regular rate Drain with thin clear yellow fluid Abdomen soft. Incisions cdi 02/02/17 11:17 Objective: Vital Signs Temp Pulse Resp BP Pulse Ox 37.1 C 75 18 91/51 L 95 02/02/17 07:30 02/02/17 07:30 02/02/17 07:30 02/02/17 07:30 02/02/17 07:30 Microbiology 01/29/17 17:30 Gram Stain - Final Liver - Aspirate Laboratory Results 02/01/17 05:30 01/29/17 15:10 02/01/17 02/02/17 02/03/17 05:59 05:59 05:59 Intake Total 1945 1169 122 Output Total 330 325 Balance 1615 844 122 PT 14.9 SEC (12.0-15.0) 02/02/17 04:58 INR 1.17 (0.83-1.16) H 02/02/17 04:58 ICD10 Worksheet Patient Problems: Problems Problem Status Onset Perforated abdominal viscus Acute Perforated bowel Acute
[2017-02-02] MEDS: HEPARIN/DEXTROSE 500 ML IV SCH (15:01)
[2017-02-02] MEDS ORDERED: WARFARIN SODIUM 7.5 MG TAB PO ONE (16:00)
[2017-02-02] MEDS: ENOXAPARIN 80 MG/0.8 ML SYR SC SCH (20:30)
[2017-02-03] MEDS: LEVOTHYROXINE 100 MCG TAB PO SCH (05:09)
[2017-02-03] MEDS: LIOTHYRONINE SODIUM 25 MCG TAB PO SCH (05:09)
[2017-02-03] MEDS: oxyCODONE IR 5 MG TAB PO PRN (05:17)
[2017-02-03 06:48] LABS: INR 1.27 (0.83-1.16); PROTIME(PATIENT) 15.9 SEC (12.0-15.0)
[2017-02-03] MEDS: CYCLOBENZAPRINE 10 MG TAB PO SCH (08:46)
[2017-02-03] MEDS: PANTOPRAZOLE SODIUM 40 MG TAB PO SCH (08:46)
[2017-02-03] MEDS: ENOXAPARIN 80 MG/0.8 ML SYR SC SCH (08:46)
[2017-02-03 09:05] VITALS: BP 105/63; PULSE 86; RESP 18; TEMP 98.2; O2SAT 97
--- NOTE | 2017-02-03 10:24 | SOAPPROG ---
SOAP Progress Note Assessment/Plan: Assessment: 56yo female s/p RUQ IR drain for fluid collection, Right sided thoracentesis , B/L PE, s/p Jose path repair of ulcer, H pylori positive pain well controlled on oxycodone (had 1 pill last 24hrs per pt), tolerating regular diet, no SOB, would like to go home today PE awake alert, no signs of resp distress Chest CTA B/L, right back bandage dry Abdomen IR drain in place with scant clear drainage, soft nontender CXR tiny B/L effusions Plan: probably home today, will clarify f/u care of anticoagulation ?drain removal will discuss with Dr Wells 02/03/17 10:21 Objective: Vital Signs Temp Pulse Resp BP Pulse Ox 36.8 C 86 18 105/63 97 02/03/17 09:03 02/03/17 09:03 02/03/17 09:03 02/03/17 09:03 02/03/17 09:03 Microbiology 01/29/17 17:30 Gram Stain - Final Liver - Aspirate Laboratory Results 02/01/17 05:30 01/29/17 15:10 02/02/17 02/03/17 02/04/17 05:59 05:59 05:59 Intake Total 1169 1365 Output Total 325 30 Balance 844 1335 PT 15.9 SEC (12.0-15.0) H 02/03/17 05:50 INR 1.27 (0.83-1.16) H 02/03/17 05:50 ICD10 Worksheet Patient Problems: Problems Problem Status Onset Perforated abdominal viscus Acute Perforated bowel Acute
--- NOTE | 2017-02-03 11:23 | SOAPPROG ---
SOAP Progress Note Assessment/Plan: Assessment: 56yo female s/p RUQ IR drain for fluid collection, Right sided thoracentesis , B/L PE, s/p Jose path repair of ulcer, H pylori positive pain well controlled on oxycodone (had 1 pill last 24hrs per pt), tolerating regular diet, no SOB, would like to go home today PE awake alert, no signs of resp distress Chest CTA B/L, right back bandage dry Abdomen IR drain in place with scant clear drainage, soft nontender CXR tiny B/L effusions Plan: probably home today, will clarify f/u care of anticoagulation ?drain removal will discuss with Dr Wells 02/03/17 10:21 02/03/17 11:22 will tube over script shortly. Objective: Vital Signs Temp Pulse Resp BP Pulse Ox 36.8 C 86 18 105/63 97 02/03/17 09:03 02/03/17 09:03 02/03/17 09:03 02/03/17 09:03 02/03/17 09:03 Microbiology 01/29/17 17:30 Gram Stain - Final Liver - Aspirate Laboratory Results 02/01/17 05:30 01/29/17 15:10 02/02/17 02/03/17 02/04/17 05:59 05:59 05:59 Intake Total 1169 1365 Output Total 325 30 Balance 844 1335 PT 15.9 SEC (12.0-15.0) H 02/03/17 05:50 INR 1.27 (0.83-1.16) H 02/03/17 05:50 ICD10 Worksheet Patient Problems: Problems Problem Status Onset Perforated abdominal viscus Acute Perforated bowel Acute
[2017-02-03] MEDS ORDERED: ACETAMINOPHEN 325 MG TAB PO PRN (12:24)
--- NOTE | 2017-02-04 19:16 | GDS ---
[f rep st] DISCHARGE SUMMARY REASON FOR ADMISSION: Intra-abdominal fluid after recent surgery. OTHER PERTINENT DIAGNOSES: Deep venous thrombosis, pulmonary embolism. HOSPITAL COURSE: The patient is a pleasant 56-year-old female who was seen in our office on , complaining of right upper quadrant pain after a recent laparoscopic Jose patch repair of ulc er. CT scan demonstrated a fluid collection and patient was admitted to the hospital and underwent abscess drainage CT scan. The fluid did not grow any organisms. Hospital course was also remarkabl e for worsening oxygen saturation and patient had a chest CTA which demonstrated bilateral pulmonary embolisms, later an extremity venous ultrasound demonstrated a right lower extremity deep venous th rombosis. The patient also underwent a thoracentesis for pleural effusion in which approximately 12 00 mL of fluid were removed. The patient was seen and examined by Oncology, Dr. Reddy, who will manage the patient's anticoagulatio n as an outpatient. She was discharged on Coumadin and Lovenox. Patient will be seen in our office 2 days from discharge and have a followup chest x-ray. This has already been ordered on the [facility] connect system. Also ordered was a serum PT test in case the patien t is unable to get into Dr. Reddy this week. This should be done on Wednesday, February 05, 2017, as well a t the same appointment with the chest x-ray. /[id number]/MODL
== END 2017-02-03 14:07 | disposition home or self-care (01) | DRG 919 ==
LOC: FIMAGING 10:33 → F3E 13:38 → OBSVTOIN 13:38 → F1N 14:18 → EDSTATUS 18:00
PROVIDERS: ADMIT Surgery; ATTEND Surgery
PROC: 0W9G30Z Drainage of Peritoneal Cavity with Drainage Device, Percutaneous Approach (ICD-10-PCS; principal; 2017-01-29)
PROC: 0W993ZZ Drainage of Right Pleural Cavity, Percutaneous Approach (ICD-10-PCS; 2017-02-02)
DX: K91.872 Postprocedural seroma of a digestive system organ or structure following a digestive system procedure (principal); T81.718A Complication of other artery following a procedure, not elsewhere classified, initial encounter; I26.99 Other pulmonary embolism without acute cor pulmonale; T81.72XA Complication of vein following a procedure, not elsewhere classified, initial encounter; I82.491 Acute embolism and thrombosis of other specified deep vein of right lower extremity; J95.811 Postprocedural pneumothorax; J90 Pleural effusion, not elsewhere classified; E03.9 Hypothyroidism, unspecified
CPT/HCPCS: 85520-90; J1170; J1335; J1644; J1650; J2060; J2250; J3010; Q9967

== ENCOUNTER → 2017-02-05 | Outpatient (CLI) | payer OTHER | LOC: FIMAGING 16:07 | PROVIDERS: ATTEND Physician Assistant Surgical | DX: J90 Pleural effusion, not elsewhere classified (principal); I26.99 Other pulmonary embolism without acute cor pulmonale; Z98.890 Other specified postprocedural states ==

== ENCOUNTER → 2017-02-10 | Outpatient (CLI) | payer OTHER | LOC: FLAB 11:52 | PROVIDERS: ATTEND Surgery | DX: J90 Pleural effusion, not elsewhere classified (principal) ==

== ENCOUNTER → 2017-02-17 | Outpatient (CLI) | payer OTHER | LOC: FIMAGING 09:33 | PROVIDERS: ATTEND Surgery | DX: J90 Pleural effusion, not elsewhere classified (principal) ==

== ENCOUNTER → 2017-08-24 | Outpatient (CLI) | payer OTHER | LOC: FIMAGING 14:19 | PROVIDERS: ATTEND Family Medicine | DX: Z12.31 Encounter for screening mammogram for malignant neoplasm of breast (principal) | CPT/HCPCS: G0202 ==

== ENCOUNTER → 2018-09-30 | Outpatient (CLI) | payer OTHER | LOC: FIMAGING 13:13 | PROVIDERS: ATTEND Family Medicine | DX: Z12.31 Encounter for screening mammogram for malignant neoplasm of breast (principal) ==

== ENCOUNTER → 2018-10-19 | Outpatient (CLI) | payer OTHER | LOC: FIMAGING 13:58 | PROVIDERS: ATTEND Family Medicine | DX: R92.8 Other abnormal and inconclusive findings on diagnostic imaging of breast (principal) ==